=== PATIENT | male | born 1985 | race Caucasian/White ===

== ENCOUNTER 2019-12-16 22:15 | Emergency (ER) | payer OTHER ==
[~2019-12-16] VITALS: Ht 162.6 cm; Wt 72.6 kg
--- NOTE | 2019-12-16 22:32 | NUR ---
DR GARCIA AT BED SIDE
--- NOTE | 2019-12-16 22:40 | NUR ---
BIBS FROM HOME TO ER BED 7. AAOX4. NOT IN RESP DISTRESS, BREATHING EVEN AND UNLABORED. AMBULATORY. CAME IN FOR CONCERN OF HYPERTENSION AND CHEST TIGHTNESS THAT HAS BEEN GOING ON FOR MONTHS. UPON ASSESSMENT, PT'S BP WAS NOTED @ 208/107. CHEST TIGHTNESS IS NOT PRESENT AT THE TIME OF ASSESSMENT, PT STATES THAT IT IS INTERMITENT IN NATURE FOR THE PAST 3 MONTHS. MD WAS AT THE BEDSIDE FOR EVAL. ORDERS RECEIVED NOTED AND CARRIED OUT. IV LINE IS ESTABLISHED ON THE L AC 18G. BLOOD DRAWN AND SENT GIVEN TO [facility]. PT IS ON MONITOR
[2019-12-16 22:43] LABS: BASOPHILS % (AUTO) 0.2 % (0.0-2.0); EOSINOPHILS % (AUTO) 0.1 % (0.0-6.0); LYMPHOCYTES % (AUTO) 6.2 % (20.0-44.0); MEAN CORPUSCULAR VOLUME 92 fL (80-96)
[2019-12-16 22:49] LABS: HEMATOCRIT 52 % (39-51); HEMOGLOBIN 17.8 g/dL (13.5-17.5); MEAN CORPUSCULAR HGB CONC 34 g/dl (31.0-36.0); MONOCYTES # (AUTO) 0.4 /CMM (0.1-1.30); MONOCYTES % (AUTO) 2.2 % (2.0-12.0); NEUTROPHILS # (AUTO) 14.8 /CMM (1.8-8.9); NEUTROPHILS % (AUTO) 91.3 % (43.0-81.0); PLATELET COUNT (AUTO) 229 /CMM (150-450); RED BLOOD CELL COUNT(AUTO) 5.65 MIL/uL (4.5-6.0); WHITE BLOOD COUNT (AUTO) 16.2 K/uL (4.3-11.0)
[2019-12-16 22:52] LABS: CALCIUM, SERUM 9.1 mg/dL (8.5-10.1); CARBON DIOXIDE 25 mmol/L (21-32); CHLORIDE 101 mmol/L (98-107); CREATININE 1.2 mg/dL (0.6-1.3); GLUCOSE 114 mg/dL (74-106); POTASSIUM 3.9 mmol/L (3.5-5.1); SODIUM SERUM 138 mmol/L (136-145); UREA NITROGEN, BLOOD 17 mg/dL (7-18)
[2019-12-16] MEDS ORDERED: LABETALOL HCL IV 100MG VIAL IV ONE (23:00)
[2019-12-16] MEDS ORDERED: LABETALOL HCL IV 100MG VIAL ONE (23:17)
--- NOTE | 2019-12-16 23:30 | NUR ---
PT BP NOTED 145/104. MADE AWARE. INSTRUCTED TO HOLD ON TRANDATE. NOTED AND CARRIED OUT
--- NOTE | 2019-12-16 23:58 | NUR ---
Patient discharged to home in stable condition. Written and verbal after care instructions given. Patient verbalizes understanding of instruction.IV removed. Catheter intact and site benign. Pressure and 4x4 applied to site. No bleeding noted. Pt ambulatory with a steady gait
[2019-12-16 23:59] VITALS: BP 145/104
== END 2019-12-17 | disposition home or self-care (01) ==
LOC: ER 22:18
DX: I10 Essential (primary) hypertension (principal); R07.89 Other chest pain
CPT/HCPCS: 36415; 71045; 80048; 84484; 85025; 93005; 99285; J3490